=== PATIENT | male | born 1955 | race African-American/Black ===

== ENCOUNTER 2017-03-05 10:01 | Emergency (ER) | payer MEDICARE, MEDICAID ==
[~2017-03-05] VITALS: Ht 190.5 cm; Wt 95.0 kg
[~2017-03-05 10:01] MED LIST: ASPI-518 PO; LISI10TA5 PO; LOSA100T11 PO; MINO10TA PO; NPH,100V11 SQ
[2017-03-05] MEDS ORDERED: ONDANSETRON HCL 4MG/2ML VIAL IV STA (10:21)
[2017-03-05] MEDS ORDERED: SODIUM CHLORIDE 0.9% 1,000 ML IV ONE (10:21)
[2017-03-05 10:30] LABS: BASOPHILS % 1.3 % (0.0-2.0); EOSINOPHILS % 0.8 % (0.0-5.0); HEMATOCRIT. 34.2 % (42.0-52.0); HEMOGLOBIN. 10.7 g/dL (14.0-18.0); MEAN CORPUSCULAR HGB CONC 31.3 g/dL (31.0-37.0); MEAN CORPUSCULAR VOLUME 83.1 fL (80.0-94.0); MEAN PLATELET VOLUME 8.2 fl (7.4-10.4); MONOCYTES % 7.9 % (2.0-8.0); PLATELET 201 x1000/uL (130-400); RED BLOOD CELL COUNT 4.11 mill/uL (4.7-6.1); RED CELL DISTRIBUTION WIDTH 17.1 % (11.6-14.6); WHITE BLOOD COUNT 6.3 x1000/uL (4.5-11.0)
[2017-03-05] MEDS ORDERED: METOCLOPRAMIDE HCL 10MG/2ML VIAL IV ONE (10:30)
[2017-03-05 10:37] LABS: CHLORIDE 97 mEq/L (98-107); INDEX HEMOLYSI 1 (1-3); INDEX ICTERIC 1 (1-4); INDEX LIPEMIC 1 (1-3)
[2017-03-05 10:46] LABS: ALANINE AMINOTRANSFERASE 18 IU/L (13-61); ALBUMIN 3.5 g/dL (3.4-5.0); ANION GAP 19; CALCIUM 9.5 mg/dL (8.5-10.1); CARBON DIOXIDE 25 mEq/L (21-32); LIPASE 130 IU/L (73-393); UREA NITROGEN BLOOD 43 mg/dL (7-21); eGFR 8 mL/min (>60)
[2017-03-05 13:46] VITALS: BP 165/68
== END 2017-03-05 15:04 | disposition home or self-care (01) ==
LOC: ER 10:15
DX: E11.43 Type 2 diabetes mellitus with diabetic autonomic (poly)neuropathy (principal); K31.84 Gastroparesis; I10 Essential (primary) hypertension; E11.9 Type 2 diabetes mellitus without complications; Z91.14 Patient's other noncompliance with medication regimen; Z79.82 Long term (current) use of aspirin; Z79.899 Other long term (current) drug therapy; Z79.4 Long term (current) use of insulin
CPT/HCPCS: 36415; 80053; 83690; 85025; 96361; 96374; 96375; 99285; J2405; J2765; J7030

== ENCOUNTER 2017-03-06 22:38 | Inpatient (IN) | payer MEDICARE, MEDICAID ==
[~2017-03-06] VITALS: Ht 190.5 cm; Wt 90.7 kg
[2017-03-06] MEDS ORDERED: ONDANSETRON HCL 4MG/2ML VIAL IV NR (23:15)
[2017-03-06 23:43] LABS: BASOPHILS % 0.8 % (0.0-2.0); EOSINOPHILS % 0.4 % (0.0-5.0); HEMATOCRIT. 36.5 % (42.0-52.0); HEMOGLOBIN. 11.6 g/dL (14.0-18.0); LYMPHOCYTES % 8.8 % (20.0-50.0); MEAN CORPUSCULAR HEMOGLOBIN 26.4 pg (28.0-32.0); MEAN CORPUSCULAR HGB CONC 31.7 g/dL (31.0-37.0); MEAN CORPUSCULAR VOLUME 83.3 fL (80.0-94.0); MEAN PLATELET VOLUME 8.3 fl (7.4-10.4); PLATELET 221 x1000/uL (130-400); RED BLOOD CELL COUNT 4.39 mill/uL (4.7-6.1); RED CELL DISTRIBUTION WIDTH 16.8 % (11.6-14.6); WHITE BLOOD COUNT 7.8 x1000/uL (4.5-11.0)
[2017-03-06 23:54] LABS: ALANINE AMINOTRANSFERASE 17 IU/L (13-61); ALBUMIN 3.6 g/dL (3.4-5.0); ANION GAP 21; CALCIUM 9.3 mg/dL (8.5-10.1); CARBON DIOXIDE 24 mEq/L (21-32); CHLORIDE 94 mEq/L (98-107); INDEX HEMOLYSI 1 (1-3); INDEX ICTERIC 1 (1-4); INDEX LIPEMIC 1 (1-3); UREA NITROGEN BLOOD 73 mg/dL (7-21); eGFR 5 mL/min (>60)
[2017-03-07] MEDS ORDERED: METOCLOPRAMIDE HCL 10MG/2ML VIAL IV NR (03:00)
[2017-03-07] MEDS ORDERED: CLONIDINE 0.2MG TABLET PO NR (03:00)
[2017-03-07 10:00] VITALS: BP 152/93
[2017-03-07] MEDS ORDERED: GUAIFENESIN 200MG/10ML SUGAR FREE UDC PO PRN (10:15)
[2017-03-07] MEDS ORDERED: ZOLPIDEM TARTRATE 5MG TABLET PO PRN (10:15)
[2017-03-07] MEDS ORDERED: NITROGLYCERIN 0.4MG TABLET SL SL PRN (10:15)
[2017-03-07] MEDS ORDERED: TRAMADOL 50MG TABLET PO PRN (10:15)
[2017-03-07] MEDS ORDERED: CLONIDINE 0.1MG TABLET PO PRN (10:15)
[2017-03-07] MEDS ORDERED: ACETAMINOPHEN 325MG TABLET PO PRN (10:15)
[2017-03-07] MEDS ORDERED: LORAZEPAM 2MG/ML CPJ IV PRN (10:15)
[2017-03-07] MEDS ORDERED: ONDANSETRON HCL 4MG/2ML VIAL IV PRN (10:15)
[2017-03-07] MEDS ORDERED: MAGNESIUM/ALUMINUM HYDROXIDE/SIMETHICONE 30ML UDC PO PRN (10:15)
[2017-03-07] MEDS ORDERED: IPRATROPIUM/ALBUTEROL 0.5-3(2.5)MG/3ML NEB INH PRN (10:15)
[2017-03-07] MEDS ORDERED: DOCUSATE SODIUM 100MG CAPSULE PO PRN (10:15)
[2017-03-07] MEDS ORDERED: NA PHOS,M-B/NA PHOS,DI-BA ENEMA 118ML PR PRN (10:15)
[2017-03-07] MEDS ORDERED: DIPHENHYDRAMINE 50MG/ML VIAL IV PRN (10:15)
[2017-03-07] MEDS ORDERED: DEXTROSE 50% WATER 50ML SYRINGE IV PRN (10:30)
[2017-03-07] MEDS: BLOOD SUGAR DIAGNOSTIC STRIP TEST SCH ×3 (12:10→21:02)
[2017-03-07] MEDS: INSULIN LISPRO 100 UNITS/ML SUBCUT SCH ×3 (12:40→21:00)
[2017-03-07] MEDS: SEVELAMER CARBONATE 800 MG TABLET PO SCH ×2 (13:40→18:19)
[2017-03-07] MEDS: METOCLOPRAMIDE 10MG/10 ML UDC PO SCH ×3 (13:40→21:01)
[2017-03-07] MEDS: ENOXAPARIN 30MG/0.3ML SYR SUBCUT SCH (13:41)
[2017-03-07] MEDS: HYDRALAZINE HCL 50MG TABLET PO SCH ×2 (14:00→21:02)
[2017-03-07] MEDS: ERYTHROMYCIN 250MG TABLET PO SCH ×2 (14:00→21:52)
[2017-03-07 16:11] LABS: CREATINE KINASE 142 IU/L (39-308); CREATINE KINASE MB FRACTION 1.4 ng/mL (0.5-3.6); HDL CHOLESTEROL 55 mg/dL (40-59); INDEX HEMOLYSI 1 (1-3); INDEX ICTERIC 1 (1-4); INDEX LIPEMIC 1 (1-3); LDL CHOLESTEROL 84 mg/dL (5-100); TRIGLYCERIDE 182 mg/dL (0-150); TROPONIN I < 0.02 ng/mL (0.00-0.04)
[2017-03-07 20:00] VITALS: BP 115/78
[2017-03-07 23:23] LABS: CREATINE KINASE 117 IU/L (39-308); CREATINE KINASE MB FRACTION 1.4 ng/mL (0.5-3.6); INDEX HEMOLYSI 1 (1-3); TROPONIN I < 0.02 ng/mL (0.00-0.04)
[2017-03-08] VITALS: BP 108/66
[2017-03-08 04:00] VITALS: BP 140/75
[2017-03-08] MEDS: HYDRALAZINE HCL 50MG TABLET PO SCH ×3 (06:13→21:34)
[2017-03-08] MEDS: METOCLOPRAMIDE 10MG/10 ML UDC PO SCH ×4 (06:13→21:25)
[2017-03-08] MEDS: BLOOD SUGAR DIAGNOSTIC STRIP TEST SCH ×4 (06:15→21:24)
[2017-03-08] MEDS: INSULIN LISPRO 100 UNITS/ML SUBCUT SCH ×4 (06:15→21:00)
[2017-03-08 06:30] LABS: CALCIUM 8.2 mg/dL (8.5-10.1); MAGNESIUM 2.5 mg/dL (1.8-2.4); PHOSPHORUS 4.7 mg/dL (2.5-4.9)
[2017-03-08 06:50] LABS: BASOPHILS % 1.4 % (0.0-2.0); EOSINOPHILS % 2.3 % (0.0-5.0); HEMATOCRIT. 31.2 % (42.0-52.0); LYMPHOCYTES % 24.5 % (20.0-50.0); MEAN CORPUSCULAR HEMOGLOBIN 26.7 pg (28.0-32.0); MEAN CORPUSCULAR VOLUME 83.5 fL (80.0-94.0); MEAN PLATELET VOLUME 8.8 fl (7.4-10.4); MONOCYTES % 12.4 % (2.0-8.0); NEUTROPHILS % 59.4 % (40.0-76.0); PLATELET 188 x1000/uL (130-400); RED BLOOD CELL COUNT 3.74 mill/uL (4.7-6.1); RED CELL DISTRIBUTION WIDTH 16.6 % (11.6-14.6); WHITE BLOOD COUNT 4.7 x1000/uL (4.5-11.0)
[2017-03-08 08:00] VITALS: BP 110/74
[2017-03-08] MEDS: SEVELAMER CARBONATE 800 MG TABLET PO SCH ×3 (08:29→17:12)
[2017-03-08] MEDS: FOLIC ACID/VITAMIN B COMP W-C TABLET PO SCH (08:30)
[2017-03-08] MEDS: PANTOPRAZOLE SODIUM 40 MG/VIAL IV SCH (08:30)
[2017-03-08 10:50] LABS: INDEX HEMOLYSI 1 (1-3); INDEX ICTERIC 1 (1-4); INDEX LIPEMIC 1 (1-3); IRON 43 ug/dL (50-175); TOTAL IRON BINDING CAPACITY 157 ug/dL (250-450)
[2017-03-08 12:00] VITALS: BP 116/69
[2017-03-08] MEDS: ENOXAPARIN 30MG/0.3ML SYR SUBCUT SCH (13:14)
[2017-03-08 16:00] VITALS: BP 108/63
[2017-03-08 20:00] VITALS: BP 128/73
[2017-03-08] MEDS ORDERED: EPOETIN ALFA 10000UNITS/ML VIAL SUBCUT SCH (21:00)
[2017-03-09] VITALS (7 sets, daily range): BP systolic 108–154; BP diastolic 63–88
[2017-03-09] MEDS: HYDRALAZINE HCL 50MG TABLET PO SCH ×3 (06:00→21:16)
[2017-03-09] MEDS: BLOOD SUGAR DIAGNOSTIC STRIP TEST SCH (06:22)
[2017-03-09] MEDS: METOCLOPRAMIDE 10MG/10 ML UDC PO SCH ×4 (06:24→21:16)
[2017-03-09 06:39] LABS: HEMATOCRIT. 31.3 % (42.0-52.0); HEMOGLOBIN. 9.8 g/dL (14.0-18.0); MEAN CORPUSCULAR HEMOGLOBIN 26.4 pg (28.0-32.0); MEAN CORPUSCULAR HGB CONC 31.3 g/dL (31.0-37.0); MEAN CORPUSCULAR VOLUME 84.2 fL (80.0-94.0); MEAN PLATELET VOLUME 8.8 fl (7.4-10.4); PLATELET 173 x1000/uL (130-400); RED BLOOD CELL COUNT 3.72 mill/uL (4.7-6.1); RED CELL DISTRIBUTION WIDTH 16.5 % (11.6-14.6); WHITE BLOOD COUNT 4.8 x1000/uL (4.5-11.0)
[2017-03-09 07:23] LABS: DIFFERENTIAL COMMENT 1
[2017-03-09 07:45] LABS: ALBUMIN 2.9 g/dL (3.4-5.0); CHLORIDE 101 mEq/L (98-107); INDEX HEMOLYSI 1 (1-3); INDEX ICTERIC 1 (1-4); INDEX LIPEMIC 1 (1-3); UREA NITROGEN BLOOD 59 mg/dL (7-21)
[2017-03-09 07:49] LABS: ALANINE AMINOTRANSFERASE 9 IU/L (13-61); ANION GAP 16; CALCIUM 8.2 mg/dL (8.5-10.1); CARBON DIOXIDE 24 mEq/L (21-32); MAGNESIUM 2.4 mg/dL (1.8-2.4); PHOSPHORUS 5.1 mg/dL (2.5-4.9); eGFR 5 mL/min (>60)
[2017-03-09] MEDS: SEVELAMER CARBONATE 800 MG TABLET PO SCH ×3 (09:40→17:31)
[2017-03-09] MEDS: PANTOPRAZOLE SODIUM 40 MG/VIAL IV SCH (09:40)
[2017-03-09] MEDS: FOLIC ACID/VITAMIN B COMP W-C TABLET PO SCH (09:40)
[2017-03-09] MEDS: ENOXAPARIN 30MG/0.3ML SYR SUBCUT SCH (13:24)
[2017-03-09 20:53] LABS: PLATELET ESTIMATE NORMAL
[2017-03-10] VITALS: BP 126/64
[2017-03-10 05:04] VITALS: BP 147/78
[2017-03-10] MEDS: HYDRALAZINE HCL 50MG TABLET PO SCH ×2 (05:05→14:00)
[2017-03-10] MEDS: METOCLOPRAMIDE 10MG/10 ML UDC PO SCH ×2 (06:16→12:52)
[2017-03-10 08:33] VITALS: BP 131/70
[2017-03-10] MEDS: FOLIC ACID/VITAMIN B COMP W-C TABLET PO SCH (08:40)
[2017-03-10] MEDS: SEVELAMER CARBONATE 800 MG TABLET PO SCH ×2 (08:41→12:52)
[2017-03-10] MEDS ORDERED: FAMOTIDINE 20MG/2ML VIAL IV SCH (09:00)
[2017-03-10 12:33] VITALS: BP 123/74
[2017-03-10 13:32] VITALS: BP 123/74
[2017-03-10] MEDS: ENOXAPARIN 30MG/0.3ML SYR SUBCUT SCH (13:55)
== END 2017-03-10 14:40 | disposition home or self-care (01) | DRG 291 ==
LOC: ER 22:38 → 8WST 03-07 06:23
PROVIDERS: ADMIT Internal Medicine; ATTEND Internal Medicine
PROC: 5A1D60Z (ICD-10-PCS; principal; 2017-03-07)
DX: I13.2 Hypertensive heart and chronic kidney disease with heart failure and with stage 5 chronic kidney disease, or end stage renal disease (principal); I50.33 Acute on chronic diastolic (congestive) heart failure; N18.6 End stage renal disease; E87.1 Hypo-osmolality and hyponatremia; I42.0 Dilated cardiomyopathy; D64.9 Anemia, unspecified; E11.22 Type 2 diabetes mellitus with diabetic chronic kidney disease; E11.42 Type 2 diabetes mellitus with diabetic polyneuropathy; E11.43 Type 2 diabetes mellitus with diabetic autonomic (poly)neuropathy; I16.0 Hypertensive urgency; X58.XXXA Exposure to other specified factors, initial encounter; K31.84 Gastroparesis; S91.301A Unspecified open wound, right foot, initial encounter; Z79.4 Long term (current) use of insulin; Z87.891 Personal history of nicotine dependence; Z91.19 Patient's noncompliance with other medical treatment and regimen; Z99.2 Dependence on renal dialysis; Z79.82 Long term (current) use of aspirin; Z79.899 Other long term (current) drug therapy; Z89.431 Acquired absence of right foot; Y93.89 Activity, other specified; Y92.89 Other specified places as the place of occurrence of the external cause; Y99.8 Other external cause status
CPT/HCPCS: 36415; 71010; 80048; 80053; 80061; 82550; 82553; 82728; 82962; 83036; 83540; 83550; 83690; 83735; 84100; 84484; 85025; 93005; 93970; 96374; 96375; 99285; C9113; J0885; J1650; J1815; J2405; J2765; J3490; J7030; J8597

== ENCOUNTER 2017-03-23 08:33 | Emergency (ER) | payer MEDICARE, MEDICAID ==
[~2017-03-23] VITALS: Ht 182.9 cm; Wt 81.0 kg
[~2017-03-23 08:33] MED LIST changes: -LOSA100T11 PO; +LOSA100T3 PO
[2017-03-23] MEDS ORDERED: ONDANSETRON HCL 4MG/2ML VIAL IV STA (09:02)
[2017-03-23] MEDS ORDERED: MORPHINE SULFATE 4 MG/ML CPJ (NOT FOR IM USE) IV STA (09:02)
[2017-03-23 09:25] LABS: HEMOGLOBIN. 10.2 g/dL (14.0-18.0); MEAN CORPUSCULAR HEMOGLOBIN 26.1 pg (28.0-32.0); MEAN CORPUSCULAR VOLUME 81.9 fL (80.0-94.0); MEAN PLATELET VOLUME 7.6 fl (7.4-10.4); PLATELET 231 x1000/uL (130-400); RED CELL DISTRIBUTION WIDTH 15.8 % (11.6-14.6)
[2017-03-23 09:31] LABS: PROTHROMBIN TIME 10.8 sec
[2017-03-23 09:36] LABS: CARBON DIOXIDE 23 mEq/L (21-32); CHLORIDE 91 mEq/L (98-107)
[2017-03-23 09:53] LABS: PLATELET ESTIMATE NORMAL
[2017-03-23] MEDS ORDERED: METOCLOPRAMIDE HCL 10MG/2ML VIAL IV ONE (10:15)
[2017-03-23 12:43] VITALS: BP 154/73
== END 2017-03-23 13:22 | disposition home or self-care (01) ==
LOC: ER 10:10
DX: R11.2 Nausea with vomiting, unspecified (principal); R10.13 Epigastric pain; I12.0 Hypertensive chronic kidney disease with stage 5 chronic kidney disease or end stage renal disease; E11.22 Type 2 diabetes mellitus with diabetic chronic kidney disease; N18.6 End stage renal disease; Z99.2 Dependence on renal dialysis; Z79.84 Long term (current) use of oral hypoglycemic drugs; Z79.82 Long term (current) use of aspirin; Z89.9 Acquired absence of limb, unspecified
CPT/HCPCS: 36415; 74176; 80053; 82962; 83690; 85025; 85610; 96374; 96375; 99285; J2270; J2405; J2765

== ENCOUNTER 2017-04-01 06:27 | Emergency (ER) | payer MEDICARE, MEDICAID ==
[~2017-04-01] VITALS: Ht 188 cm; Wt 90.0 kg
[~2017-04-01 06:27] MED LIST changes: +LOSA100T11 PO; -LOSA100T3 PO
[2017-04-01] MEDS ORDERED: ONDANSETRON HCL 4MG/2ML VIAL IV STA (07:31)
[2017-04-01] MEDS ORDERED: FAMOTIDINE 20MG/2ML VIAL IV STA (07:31)
[2017-04-01] MEDS ORDERED: MAGNESIUM/ALUMINUM HYDROXIDE/SIMETHICONE 30ML UDC PO STA (07:31)
[2017-04-01] MEDS ORDERED: VISCOUS LIDOCAINE 2% 15 ML UDC PO STA (07:31)
[2017-04-01] MEDS ORDERED: MORPHINE SULFATE 4 MG/ML CPJ (NOT FOR IM USE) IV STA (07:31)
[2017-04-01 07:54] LABS: CHLORIDE 94 mEq/L (98-107)
[2017-04-01 07:55] LABS: HEMATOCRIT. 32.7 % (42.0-52.0); HEMOGLOBIN. 10.3 g/dL (14.0-18.0); MEAN CORPUSCULAR HEMOGLOBIN 25.7 pg (28.0-32.0); MEAN CORPUSCULAR VOLUME 81.5 fL (80.0-94.0); MEAN PLATELET VOLUME 7.9 fl (7.4-10.4); PLATELET 391 x1000/uL (130-400); RED BLOOD CELL COUNT 4.02 mill/uL (4.7-6.1); RED CELL DISTRIBUTION WIDTH 16.4 % (11.6-14.6)
[2017-04-01 08:03] LABS: CARBON DIOXIDE 26 mEq/L (21-32)
[2017-04-01 08:29] VITALS: BP 173/83
[2017-04-01 08:39] LABS: PLATELET ESTIMATE NORMAL
== END 2017-04-01 09:18 | disposition home or self-care (01) ==
LOC: ER 06:28
DX: N18.6 End stage renal disease (principal); E11.22 Type 2 diabetes mellitus with diabetic chronic kidney disease; I12.0 Hypertensive chronic kidney disease with stage 5 chronic kidney disease or end stage renal disease; K31.84 Gastroparesis; K29.70 Gastritis, unspecified, without bleeding; Z79.4 Long term (current) use of insulin; Z79.82 Long term (current) use of aspirin; Z79.899 Other long term (current) drug therapy; Z99.2 Dependence on renal dialysis
CPT/HCPCS: 36415; 71010; 74176; 80053; 83690; 85025; 93005; 96374; 96375; 99285; J2270; J2405; J3490

== ENCOUNTER 2017-09-11 06:00 | Emergency (ER) | payer MEDICARE, MEDICAID ==
[~2017-09-11] VITALS: Ht 188 cm; Wt 95.0 kg
[~2017-09-11 06:00] MED LIST changes: -LOSA100T11 PO; +LOSA100T3 PO
[2017-09-11] MEDS ORDERED: VISCOUS LIDOCAINE 2% 15 ML UDC PO ONE (07:30)
[2017-09-11] MEDS ORDERED: ONDANSETRON HCL 4MG/2ML VIAL IV ONE (07:30)
[2017-09-11] MEDS ORDERED: MAGNESIUM/ALUMINUM HYDROXIDE/SIMETHICONE 30ML UDC PO ONE (07:30)
[2017-09-11] MEDS ORDERED: FAMOTIDINE 20MG/2ML VIAL IV ONE (07:30)
[2017-09-11 07:50] LABS: HEMATOCRIT. 35.1 % (42.0-52.0); HEMOGLOBIN. 11.3 g/dL (14.0-18.0); MEAN CORPUSCULAR HEMOGLOBIN 26.6 pg (28.0-32.0); MEAN CORPUSCULAR VOLUME 82.7 fL (80.0-94.0); MEAN PLATELET VOLUME 8.7 fl (7.4-10.4); PLATELET 142 x1000/uL (130-400); RED BLOOD CELL COUNT 4.25 mill/uL (4.7-6.1); RED CELL DISTRIBUTION WIDTH 17.3 % (11.6-14.6)
[2017-09-11 07:57] LABS: PROTHROMBIN TIME 10.7 sec (9.4-11.6)
[2017-09-11 08:04] LABS: CARBON DIOXIDE 23 mEq/L (21-32); CHLORIDE 100 mEq/L (98-107); ETHANOL BLOOD < 10 mg/dL
[2017-09-11 08:51] VITALS: BP 172/79
[2017-09-11 09:16] LABS: PLATELET ESTIMATE NORMAL
[2017-09-11] MEDS ORDERED: ONDANSETRON 4MG ODT PO ONE (09:30)
[2017-09-11] MEDS ORDERED: ACETAMINOPHEN 500MG TABLET PO ONE (09:30)
== END 2017-09-11 09:55 | disposition home or self-care (01) ==
LOC: ER 06:00
DX: K29.00 Acute gastritis without bleeding (principal); I50.9 Heart failure, unspecified; I11.0 Hypertensive heart disease with heart failure; E11.9 Type 2 diabetes mellitus without complications; Z99.2 Dependence on renal dialysis; Z98.890 Other specified postprocedural states
CPT/HCPCS: 36415; 80053; 83690; 85025; 85610; 96374; 96375; 99284; G0482; J2405; J3490; Q0162